=== PATIENT | male | born 2000 | race Two or more races ===

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

== ENCOUNTER 2021-04-01 06:53 | Emergency (ER) | payer OTHER ==
[~2021-04-01] VITALS: Ht 180.3 cm; Wt 83.9 kg
[2021-04-01 07:34] VITALS: BP 147/74
[2021-04-01] MEDS ORDERED: LIDOCAINE 1% HCL (LOCAL ANESTH.) INJ 20ML MDV IJ ONE (08:15)
== END 2021-04-01 09:17 | disposition home or self-care (01) ==
LOC: ER 06:53
DX: L02.31 Cutaneous abscess of buttock (principal)
CPT/HCPCS: 10060; 99283; J2001

== ENCOUNTER 2021-04-03 09:15 | Emergency (ER) | payer OTHER ==
[~2021-04-03] VITALS: Ht 180.3 cm; Wt 83.9 kg
[2021-04-03 10:21] VITALS: BP 122/63
== END 2021-04-03 10:33 | disposition home or self-care (01) ==
LOC: ER 09:15
DX: L02.31 Cutaneous abscess of buttock (principal)